=== PATIENT | male | born 1945 | race Hispanic/Latino ===

== ENCOUNTER 2017-04-19 05:56 | Day surgery (SDC) | payer MEDICARE, BC ==
[2017-03-31 07:38] VITALS: BMI 29.0
[2017-04-19] MEDS ORDERED: Rocuronium 10 mg/ml (5 ml) ONE (07:46)
[2017-04-19] MEDS ORDERED: Propofol 10 mg/ml Inj (20 ML) ONE (07:46)
[2017-04-19] MEDS ORDERED: Midazolam 2 MG/2 ML VIAL ONE (07:46)
[2017-04-19] MEDS ORDERED: Bupivacaine 0.5% Inj(30mL) ONE (07:57)
[2017-04-19] MEDS ORDERED: Sevoflurane - Inhalation Anesthetic Liq (250 ml) ONE (08:03)
[2017-04-19] MEDS ORDERED: Glycopyrrolate 0.2 mg/ml (2ml vial) ONE (08:54)
[2017-04-19] MEDS ORDERED: Neostigmine Methylsulfate 3mg/3ml Syringe IV ONE (09:10)
[2017-04-19] MEDS ORDERED: Oxycodone/Acetaminophen 5/325 mg Tab PO PRN (09:17)
--- NOTE | 2017-04-19 09:21 | PCM.SURG1 ---
Surgeon's Initial Post Op Note - Surgeon's Notes Surgeon: Dr. Lovett Custom Applicator: Elton Luque PGY2, Fredy Arriaga PGY1 Type of Anesthesia: General Endo Pre-Operative Diagnosis: Incarcerated umbilical hernia Operative Findings: Fat incarcerated umbilical hernia. [id number] umbilical hernia Post-Operative Diagnosis: SAme Operation Performed: laparoscopic umbilical hernia repair with 9cm mesh Specimen/Specimens Removed: fat Estimated Blood Loss: EBL {In ML}: 10 Blood Products Given: N/A Drains Used: No Drains Post-Op Condition: Good Date of Surgery/Procedure: 04/19/17 Time of Surgery/Procedure: 09:21
[2017-04-19 09:25] VITALS: TEMP 97.6
[2017-04-19] MEDS ORDERED: HYDROmorphone 0.5 mg/0.5 ml ISec IM STA (09:45)
[2017-04-19] MEDS ORDERED: HYDROmorphone 0.5 mg/0.5 ml ISec ONE ×2 (09:51→10:09)
[2017-04-19] MEDS ORDERED: HYDROmorphone 0.5 mg/0.5 ml ISec IVP ONE ×2 (09:53→10:12)
[2017-04-19] MEDS ORDERED: Lactated Ringer's 1,000 ML IV SCH (10:00)
[2017-04-19 11:17] VITALS: BP 139/75; PULSE 55; RESP 18; O2SAT 98
--- NOTE | 2017-04-19 20:18 | OP ---
PROCEDURE DATE: 04/19/2017 PREOPERATIVE DIAGNOSIS: Symptomatic umbilical hernia. POSTOPERATIVE DIAGNOSIS: Symptomatic umbilical hernia. PROCEDURE PERFORMED: Laparoscopic repair of the umbilical hernia with Symbotex mesh. SURGEON: Abhi Lovett MD SCRAP SAWYER: Dr. Luque and Dr. Arriaga ANESTHESIOLOGIST: Dr. Andrade. ANESTHESIA: General endotracheal anesthesia. ESTIMATED BLOOD LOSS: Minimal. SPECIMEN: None. DESCRIPTION OF PROCEDURE: The patient is a 71-year-old male with a history of increasing in size umbilical hernia associated with tenderness and discomfort, and the patient was scheduled for the repair. The patient was brought into the operating room, placed on the operating table in supine position. The patient was connected to EKG, blood pressure, and pulse oximetry monitors. The patient then underwent general endotracheal anesthesia and was prepped and draped in the usual sterile fashion. First, a standard timeout procedure took place and everybody in the room agreed as to the patient's identity, diagnosis, and procedure to be performed. Using lidocaine mixed with Marcaine in the area of the left subcostal margin and the midclavicular line was injected. An incision was made using #11 blade. A 10 mm Visiport trocar was used and the camera was placed into it and under direct vision, access to the abdominal cavity was obtained. Once the pneumoperitoneum was obtained, the 5 mm trocar was placed into the left mid abdomen in the anterior axillary line. This was done under direct vision. Now, careful evaluation of the abdominal cavity revealed the presence of the omentum stuck into the umbilical hernia, which was carefully teased out and removed. There was also some preperitoneal fat, which was lodged within the hernia, which was also removed and cleaned up now. Once this was done, the fat layer and peritoneum were scored around the hernia defect in order for the mesh to adhere better. Then the 9 cm round Symbotex mesh was used, placing it correctly against the wall with the rough portion and smooth portion was facing the bowel. This mesh was then secured to the anterior abdominal wall using dissolvable tackers in two rows. Once completed, the pneumoperitoneum was released and trocars were removed. Both trocars were inspected prior to removal for bleeding, and there was none. The wounds were now closed using 0-Vicryl for the fascia, 3-0 Vicryl for subcutaneous tissue, and 4-0 Monocryl for the skin. A sterile Dermabond dressing was applied to all the wounds. The patient tolerated the procedure well, and there was no complication. The patient was awakened and transferred to the recovery room for further observation. Abhi Lovett MD
== END 2017-04-19 12:21 | disposition home or self-care (01) ==
LOC: SDS 05:56
PROVIDERS: ATTEND General Practice
DX: K42.0 Umbilical hernia with obstruction, without gangrene (principal)
CPT/HCPCS: 49652; C1781; J0690; J1170; J2001; J2250; J2405; J2704; J2710; J3010; J7120 ×2